=== PATIENT | male | born 1940 | race Hispanic/Latino ===

== ENCOUNTER → 2023-12-18 | Outpatient (CLI) | payer OTHER ==
[2023-12-18 22:27] VITALS: PULSE 60; RESP 28
[2023-12-18 23:00] VITALS: PULSE 58; RESP 24
[2023-12-18 23:30] VITALS: PULSE 50; RESP 6
[2023-12-19] VITALS (10 sets, daily range): PULSE 48–60; RESP 4–24
== END | disposition home or self-care (01) ==
LOC: SLP 20:33
PROVIDERS: ATTEND Internal Medicine Pulmonary Disease
DX: G47.33 Obstructive sleep apnea (adult) (pediatric) (principal)
CPT/HCPCS: 95810

== ENCOUNTER → 2024-01-26 | Outpatient (CLI) | payer OTHER ==
[2024-01-26] VITALS (12 sets, daily range): PULSE 49–54; RESP 7–19
[2024-01-27] VITALS (11 sets, daily range): PULSE 47–53; RESP 12–26
== END | disposition home or self-care (01) ==
LOC: CANPRECLI → SLP 18:45
PROVIDERS: ATTEND Internal Medicine Pulmonary Disease
DX: G47.33 Obstructive sleep apnea (adult) (pediatric) (principal)
CPT/HCPCS: 95811